=== PATIENT | female | born 1985 | race Caucasian/White ===

== ENCOUNTER 2017-02-10 17:36 | Emergency (ER) | payer SELFPAY ==
[~2017-02-10] VITALS: Ht 160 cm; Wt 90.0 kg
[~2017-02-10 17:36] MED LIST: PREN1TAB49 PO
[2017-02-10 17:42] VITALS: Ht 160 cm; Wt 90.0 kg
== END 2017-02-10 19:09 | disposition left against medical advice (07) ==
LOC: FTE 17:36
DX: Z53.21 Procedure and treatment not carried out due to patient leaving prior to being seen by health care provider (principal)